=== PATIENT | male | born 1960 | race Caucasian/White ===

== ENCOUNTER → 2017-09-03 | Outpatient (CLI) | payer OTHER | LOC: FIMAGING 10:43 | PROVIDERS: ATTEND Orthopaedic Surgery | DX: S42.291A Other displaced fracture of upper end of right humerus, initial encounter for closed fracture (principal) ==

== ENCOUNTER 2017-09-12 05:18 | Day surgery (SDC) | payer OTHER ==
--- NOTE | 2017-09-11 14:58 | PDGENHP ---
History & Physical Chief Complaint: right shoulder pain and proximal humerus fracture History of Present Illness: tuyet is ap leasant 57 yo male, presenting today for surgery by dr. flores for right proximal humerus fracture fixation. Pertinent Past, Social, Family History: allergies: nkda. meds: insulin,. PMH: diabetes. FH: denies appilcable. soc: denies smoking/rec drugs, occasional ETOH Relevant Physical Exam: Physical exam of the right shoulder demonstrates diffuse ecchymosis and swelling overlying the anterior shoulder, anteromedial arm, and lateral elbow as well as the lateral aspect of his pec musculature. His active motion is significantly limited to 60 deg of FE ER to neutral, and IR to SI joint. He is tender overlying the bicipital groove, but is non-tender overlying the anterior or posterior GH joint, greater tuberosity, or AC joint. Distal neurovascularity intact upon a limited exam. A/P Assessment: right proximal humerus fracture Plan: right proximal humerus fracture ORIF by dr. flores -stat CMP upon arrival at pre op
[2017-09-12] MEDS ORDERED: ceFAZolin 2 GM/DEXTROSE 100 ML IV ONE ×2 (05:43→10:33)
[2017-09-12] MEDS ORDERED: LR 1,000 ML IV SCH (05:43)
[2017-09-12] MEDS ORDERED: LR 1,000 ML IV ONE (05:48)
[2017-09-12] MEDS ORDERED: LIDOCAINE 1% 2 ML INJ ID PRN (05:48)
[2017-09-12] MEDS ORDERED: BUPIVACAINE/EPI 0.5% 30 ML SDV ONE (06:53)
[2017-09-12] MEDS ORDERED: POLYMYXIN B SULFATE 500,000 UNIT/10 ML SYR IRR ONE (06:54)
[2017-09-12] MEDS ORDERED: BACITRACIN 50,000 UNITS/10 ML SYR IRR ONE (06:54)
[2017-09-12] MEDS ORDERED: MIDAZOLAM 2 MG/2 ML VIAL IVP ONE (07:09)
--- NOTE | 2017-09-12 07:10 | PDANEPAE ---
ANE History of Present Illness r arm fracture ANE Past Medical History - Pulmonary History Hx Sleep Apnea: No - Endocrine History Hx Diabetes: Yes ANE Review of Systems Review of Systems: ANE Patient History - Allergies Allergies/Adverse Reactions: No Known Allergies Allergy (Unverified 09/11/17 14:52) - NPO status NPO Since - Liquids (Date): 09/11/17 NPO Since - Liquids (Time): 00:00 NPO Since - Solids (Date): 09/11/17 NPO Since - Solids (Time): 22:00 ANE Labs/Vital Signs - Labs Result Diagrams: 09/12/17 06:55 - Vital Signs Blood Pressure: 157/85 Heart Rate: 83 Respiratory Rate: 16 O2 Sat (%): 96 ANE Physical Exam - Airway Neck exam: FROM Mallampati Score: Class 2 Mouth exam: normal dental/mouth exam - Pulmonary Pulmonary: no respiratory distress - Cardiovascular Cardiovascular: regular rate and rhythym - ASA Status ASA Status: II ANE Anesthesia Plan Anesthesia Plan: general endotracheal anesthesia Regional Anesthesia: supraclavicular BP NB
[2017-09-12] MEDS ORDERED: HYDROmorphONE/DILAUDID 2 MG/ML INJ ONE (07:14)
[2017-09-12] MEDS ORDERED: fentaNYL 100 MCG/2 ML INJ ONE ×3 (07:14→10:46)
[2017-09-12] MEDS ORDERED: PROPOFOL 200 MG/20 ML VIAL ONE (07:15)
[2017-09-12] MEDS ORDERED: ONDANSETRON 4 MG/2 ML VIAL IVP PRN ×2 (08:41→10:33)
[2017-09-12] MEDS ORDERED: PROMETHAZINE HCL 25 MG/ML INJ IVP PRN ×2 (08:41→10:33)
[2017-09-12] MEDS ORDERED: HYDROCODONE/APAP 5/325 TAB PO PRN ×2 (08:41→10:33)
[2017-09-12] MEDS ORDERED: NALOXONE HCL 0.4 MG/ML INJ IVP PRN (08:41)
[2017-09-12] MEDS ORDERED: ROCURONIUM 50 MG/5 ML VIAL ONE (10:23)
[2017-09-12] MEDS ORDERED: DEXAMETHASONE 4 MG/ML VIAL ONE (10:23)
[2017-09-12] MEDS ORDERED: KETOROLAC 30 MG/1 ML SDV ONE (10:23)
[2017-09-12] MEDS ORDERED: ONDANSETRON 4 MG/2 ML VIAL ONE (10:23)
[2017-09-12] MEDS ORDERED: oxyCODONE IR 5 MG TAB PO PRN (10:33)
[2017-09-12] MEDS ORDERED: ONDANSETRON DISINTEGRATING 4 MG TAB PO PRN (10:33)
[2017-09-12] MEDS ORDERED: KETOROLAC 15 MG/1 ML SDV IVP ONE (10:33)
--- NOTE | 2017-09-12 10:33 | POSTANESTH ---
Post Anesthetic Evaluation Cardiovascular Status: Normal, Stable Respiratory Status: Normal, Stable Level of Consciousness/Mental Status: Can Participate in Eval Pain Control: Adequate, Prn Tx Ordered Nausea/Vomiting Control: Adequate, Prn Tx Ordered Complications Possibly Related to Anesthesia: None Noted
[2017-09-12] MEDS ORDERED: KETOROLAC 15 MG/1 ML SDV ONE (10:37)
--- NOTE | 2017-09-12 10:45 | GOP ---
[f rep st] OPERATIVE REPORT DATE OF OPERATION: 09/12/2017 SURGEON: Talia Lomax MD MOLDER HAND: Vamsi Rendon PA-C ANESTHESIA: General. PREOPERATIVE DIAGNOSIS: Displaced lesser tuberosity fracture, right shoulder. POSTOPERATIVE DIAGNOSIS: Displaced lesser tuberosity fracture, right shoulder. PROCEDURE PERFORMED: Open reduction, internal fixation of displaced lesser tuberosity fracture, righ t shoulder. FINDINGS: ESTIMATED BLOOD LOSS: 300 cc. INDICATIONS: This patient is a 57-year-old male with a longstanding history of type 2 diabetes. He sustained an injury to his shoulder by some unknown mechanism. He was evaluated in the clinic with x -rays and a CT scan which showed a moderately displaced head-splitting fracture involving the lesser tuberosity. He was admitted for operative treatment. DESCRIPTION OF PROCEDURE: After the induction of a general anesthetic, the patient was placed on the operating room table in a modified beach chair position. His right shoulder, axilla, and arm were p repped and draped in the usual fashion. A standard deltopectoral approach was made to the right prox imal humerus. The incision was placed over the deltopectoral interval. Dissection was carried down through the subcutaneous tissues. The cephalic vein was identified, and the interval between the del toid and pectoralis developed. The cephalic vein was retracted laterally. Dissection was carried do wn to the clavipectoral fascia which was sharply incised along the lateral margin of the conjoined te ndon. The deltoid was freed from the bursal tissues such that it could be retracted laterally. The conjoined tendon was delicately retracted medially with care being taken to avoid injury to the muscu locutaneous nerve. The fracture site was identified. The periosteum overlying the lateral margin of the fracture was incised, and then the fracture was booked open such that the edges of the fracture could be well visualized. The healing fracture callus which was present in the fracture site was rem dixon with a rongeur and curette. The lesser tuberosity fracture was then reduced and held with provi sional K-wire fixation. The reduction was checked with the image intensifier before the K-wires were sequentially removed and then lesser tuberosity fracture was fixed in place using 4 partially thread ed small fragment screws all of which had a washer on the head. Three of the screws were 50 mm in le ngth and one was 40. Excellent purchase was obtained with 3 of the 4 screws. The reduction was chec ked and the hardware position checked with the image intensifier. The wounds were then irrigated in preparation for closure. The reduction appeared to be stable. The periosteal incision was reapproxi mated with 2-0 Ethibond. The deltopectoral interval was allowed to fall back into place before the d eltoid fascia was repaired with 3-0 Vicryl. The subcutaneous layers were reapproximated with 3-0 Alok ryl before the skin was closed in a running subcuticular fashion with 5-0 Vicryl. Steri-Strips and a sterile compression dressing were applied. The patient was awakened from his anesthetic. Of note, the hardware was placed in such a way that it was kept free of the bicipital groove. The patient's b one quality was somewhat osteoporotic presumably related to his previous history of a fracture in the remote past and presumably from his longstanding diabetes. COMPLICATIONS: None. /[id number]/MODL
[2017-09-12] MEDS: fentaNYL 100 MCG/2 ML INJ IVP PRN ×2 (10:49→10:53)
[2017-09-12] MEDS ORDERED: HYDROmorphONE/DILAUDID 1 MG/ML INJ ONE (11:06)
[2017-09-12] MEDS: HYDROmorphONE/DILAUDID 1 MG/ML INJ IVP PRN ×3 (11:08→11:34)
[2017-09-12] MEDS ORDERED: CEFAZOLIN 1 GM/DEXTROSE/50 ML BAG IV ONE (11:15)
[2017-09-12 12:55] VITALS: BP 133/68
== END 2017-09-12 13:30 | disposition home or self-care (01) ==
LOC: FSGY 05:18
PROVIDERS: ATTEND Orthopaedic Surgery
PROC: 0PSC04Z Reposition Right Humeral Head with Internal Fixation Device, Open Approach (ICD-10-PCS; principal; 2017-09-12 07:15)
DX: S42.261A Displaced fracture of lesser tuberosity of right humerus, initial encounter for closed fracture (principal); X58.XXXA Exposure to other specified factors, initial encounter; E10.9 Type 1 diabetes mellitus without complications; M81.0 Age-related osteoporosis without current pathological fracture; Z87.81 Personal history of (healed) traumatic fracture
CPT/HCPCS: C1713; J0690; J1100; J1170; J1885; J2250; J2405; J2704; J3010